=== PATIENT | male | born 1995 | race Caucasian/White ===

== ENCOUNTER 2018-01-18 11:50 | Emergency (ER) | payer OTHER ==
[~2018-01-18] VITALS: Ht 182.9 cm; Wt 95.3 kg
[2018-01-18 14:52] VITALS: BP 136/81
== END 2018-01-18 14:52 | disposition home or self-care (01) ==
LOC: M.ERS 11:50
DX: R51 Headache (principal)

== ENCOUNTER 2018-01-19 03:32 | Emergency (ER) | payer OTHER ==
[~2018-01-19] VITALS: Ht 182.9 cm; Wt 95.3 kg
[2018-01-19 05:35] LABS: HEMATOCRIT 46.4 % (42.0-52.0); HEMOGLOBIN 15.3 gm/dL (14.0-18.0); MCH 29.7 pg (26.0-34.0); MCHC 33.1 g/dL (28.0-37.0); MCV 89.9 fL (80.0-100.0); MPV 9.2 fl. (7.2-11.1); NUCLEATED RBCS 0 /100WBC; PLATELET COUNT* 272 thou/uL (150-400); RBC 5.16 mil/uL (4.50-6.00); RDW-CV 12.9 % (10.5-14.5); WBC 17.8 thou/uL (4.0-11.0)
[2018-01-19 05:59] LABS: CALCIUM 8.4 mg/dL (8.5-10.1); CREATININE 0.7 mg/dL (0.6-1.3); POTASSIUM 4.5 mmol/L (3.5-5.1)
[2018-01-19 06:00] LABS: URINE BILIRUBIN NEGATIVE (Negative); URINE BLOOD NEGATIVE (Negative); URINE CLARITY CLEAR; URINE COLOR YELLOW; URINE GLUCOSE-RANDOM TRACE (Negative); URINE KETONES 2+ (Negative); URINE LEUKOCYTES-REFLEX NEGATIVE (Negative); URINE NITRITE-REFLEX NEGATIVE (Negative); URINE PROTEIN 1+ (Negative); URINE SPECIFIC GRAVITY >= 1.030 (1.005-1.030); URINE UROBILINOGEN 0.2 E.U./dl (0.2-1.0)
[2018-01-19 06:04] LABS: ALBUMIN 3.7 g/dL (3.4-5.0); TOTAL BILIRUBIN 0.4 mg/dL (<0.1-1.0); TOTAL PROTEIN 7.2 g/dL (6.4-8.2)
[2018-01-19 06:07] LABS: AMP/METHAMP Negative (Negative); BARBITURATES Negative (Negative); BENZODIAZEPINES Negative (Negative); COCAINE Negative (Negative); METHADONE Negative (Negative); OPIATES POSITIVE (Negative); PCP Negative (Negative); THC POSITIVE (Negative)
[2018-01-19 06:18] LABS: ABSOLUTE LYMPHOCYTES 0.7 thou/uL (0.8-5.3); ABSOLUTE MONOCYTES 1.2 thou/uL (0.0-1.2); ABSOLUTE NEUTROPHILS 15.8 thou/uL (1.6-8.1); PLATELET ESTIMATE ADEQUATE; TOXIC GRANULATION 1+
[2018-01-19 06:40] VITALS: BP 131/78
[2018-01-19 06:43] LABS: ESR (SEDRATE) 1 mm/hr (0-15)
--- NOTE | 2018-01-19 12:13 | EKG ---
[place] [address] ELECTROCARDIOGRAM REPORT Name: NADEGE POLANCO Room: [facility]#: [id number] Admission: 01/19/18 Attend Phys: Discharge: 01/19/18 Date of : [birth year] Report #: [id number] THIS REPORT FOR: //name// [facility] ED Test Date: 2018-01-19 Test Time: 06:02:02 Pat Name: NADEGE GONZALEZLOUD Department: Room: Gender: M Laminate Floor Installer: STACY : 1995 Requested By: Ana Watkins Order Number: [id number] MD: Rigo Frederick Measurements Intervals [place] Rate: 51 P: 32 [place]: 152 QRS: 26 QRSD: 137 T: 27 QT: 479 QTc: 442 Interpretive Statements Sinus bradycardia Nonspecific intraventricular conduction delay ST elev, probable normal early repol pattern No previous ECG available for comparison Electronically Signed On 01-19-2018 12:12:53 CDT by Rigo Frederick [email or web address] <ELECTRONICALLY SIGNED> By: Rigo Frederick MD, [facility] 01/19/18 1212 D: 06/601 06 Rigo Frederick MD, FACC /EPI
== END 2018-01-19 06:40 | disposition short-term general hospital (02) ==
LOC: M.ERS 03:32
PROVIDERS: Personal Emergency Response Attendant
DX: G44.89 Other headache syndrome (principal); G93.0 Cerebral cysts; I16.0 Hypertensive urgency; R11.2 Nausea with vomiting, unspecified; F17.200 Nicotine dependence, unspecified, uncomplicated